=== PATIENT | male | born 2000 | race American Indian/Alaskan Native ===

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

== ENCOUNTER 2023-04-20 21:44 | Emergency (ER) | payer BC, OTHER ==
[2023-04-20] MEDS ORDERED: Cephalexin 500 MG Cap PO ONE (22:25)
== END 2023-04-21 00:09 | disposition home or self-care (01) ==
LOC: JD.ED 21:44
DX: S89.91XA Unspecified injury of right lower leg, initial encounter (principal); S80.811A Abrasion, right lower leg, initial encounter; W55.22XA Struck by cow, initial encounter
CPT/HCPCS: 73590; 99283; A9270

== ENCOUNTER 2023-05-25 11:05 | Emergency (ER) | payer SELFPAY ==
[2023-05-25] MEDS ORDERED: Sodium Chloride 0.9% 1,000 ML IV STA (11:51)
[2023-05-25] MEDS ORDERED: Sodium Chloride 0.9% 10 ML Syringe FLUSH PRN (11:51)
[2023-05-25] MEDS ORDERED: cefTRIAXone 2 GM in Sodium Chloride 0.9% 100 ML IV ONE (11:53)
[2023-05-25 12:20] LABS: BASOPHILS PERCENT AUTO 0.2 % (0.0-1.0); EOSINOPHILS PERCENT AUTO 0.3 % (0.0-6.0); HEMATOCRIT 45.7 % (42.0-52.0); HEMOGLOBIN 15.9 gm/dl (14.0-18.0); IMMATURE GRAN ABSOLUTE AUTO 0.06 K/mm3 (0.00-0.05); IMMATURE GRAN PERCENT AUTO 0.4 % (0.0-0.4); LYMPHOCYTES ABSOLUTE AUTO 0.7 K/mm3 (1.0-4.8); LYMPHOCYTES PERCENT AUTO 4.5 % (24.0-44.0); MEAN CORPUSCULAR HEMOGLOBIN 30.8 pg (28.0-32.0); MEAN CORPUSCULAR HGB CONC 34.8 g/dl (32.0-36.0); MEAN CORPUSCULAR VOLUME 88.6 fl (83.0-99.0); MEAN PLATELET VOLUME 10.6 fl (9.4-12.4); MONOCYTES ABSOLUTE AUTO 1.7 K/mm3 (0.0-0.8); MONOCYTES PERCENT AUTO 10.8 % (0.0-8.0); NEUTROPHILS ABSOLUTE AUTO 13.4 K/mm3 (1.8-7.7); NEUTROPHILS PERCENT AUTO 83.8 % (41.0-71.0); PLATELET COUNT,PLT 229 K/mm3 (150-400); RED BLOOD CELL COUNT 5.16 M/mm3 (4.52-5.90); WHITE BLOOD CELL COUNT,WBC 15.95 K/mm3 (3.9-11.3)
[2023-05-25 12:45] LABS: A/G RATIO 0.9 (1-2); ALBUMIN 3.7 g/dl (3.4-5.0); ANION GAP 14.2 (5-15); BILIRUBIN TOTAL 0.9 mg/dL (0.2-1.0); C-REACTIVE PROTEIN 4.5 mg/dL (<1.0); CALCIUM 9.5 mg/dL (8.5-10.1); EST CRCL DRUG DOSING (CG) 117.18 mL/min; POTASSIUM,K 4.2 mEq/L (3.5-5.1); PROTEIN TOTAL,TP 7.9 g/dl (6.4-8.2)
[2023-05-25] MEDS ORDERED: Iopamidol 612 MG/ML 100 ML Bottle IVPUSH ONE (12:50)
[2023-05-25 13:06] LABS: SLIDE REVIEW ABNORMAL SMEAR
[2023-05-25] MEDS ORDERED: Morphine 2 MG/ML SYRINGE ONE (14:35)
[2023-05-25] MEDS ORDERED: Lidocaine 1% 10 ML MDV INJECT ONE (14:37)
[2023-05-25] MEDS ORDERED: Morphine 2 MG/ML SYRINGE IVPUSH ONE (14:38)
== END 2023-05-25 16:05 | disposition home or self-care (01) ==
LOC: JD.ED 11:05
DX: S89.91XA Unspecified injury of right lower leg, initial encounter (principal); L02.415 Cutaneous abscess of right lower limb; W17.89XA Other fall from one level to another, initial encounter
CPT/HCPCS: 10060; 36415; 73701; 80053; 85025; 86140; 87040; 87070; 87205; 96365; 96375; 99284; J0696; J2270; J3490; J7030; Q9967